=== PATIENT | female | born 1965 | race African-American/Black ===

== ENCOUNTER 2016-12-07 18:35 | Emergency (ER) | payer MEDICAID ==
[2016-12-07] MEDS ORDERED: ONDANSETRON HCL INJ/PF 4 MG/2 ML SDV IV ONE (18:50)
--- NOTE | 2016-12-07 18:50 | ER Document Report ---
ED Medical Screen (RME) - General Chief Complaint: High Blood Sugar Stated Complaint: HIGH BLOOD SUGAR TRAVEL OUTSIDE OF THE [place] IN LAST 30 DAYS: No - HPI Notes: 12/07/16 18:49 Patient complains of high blood sugar nausea patient states he drank alcohol the day "a little bit - Related Data Allergies/Adverse Reactions: No Known Allergies Allergy (Verified 12/07/16 18:42) Past Medical History - Social History Family history: Reviewed & Not Pertinent - Past Medical History Cardiac Medical History: Reports: Hx Hypercholesterolemia, Hx Hypertension Denies: Hx Coronary Artery Disease, Hx Heart Attack Pulmonary Medical History: Reports: Hx Tuberculosis - carrier Denies: Hx Asthma, Hx Bronchitis, Hx COPD, Hx Pneumonia Neurological Medical History: Reports: Hx Cerebrovascular Accident - 2012- OCCASIONAL EXPRESSIVE APHASIA. Denies: Hx Seizures Endocrine Medical History: Reports: Hx Diabetes Mellitus Type 2 Renal/ Medical History: Denies: Hx Peritoneal Dialysis GI Medical History: Reports: Hx Gastroesophageal Reflux Disease Musculoskeltal Medical History: Reports Hx Arthritis, Reports Hx Musculoskeletal Trauma Skin Medical History: Reports Hx Cellulitis Psychiatric Medical History: Reports: Hx Bipolar Disorder, Hx Depression Past Surgical History: Reports: Hx Section - X3. Denies: Hx Pacemaker - Immunizations Immunizations up to date: Yes Hx Diphtheria, Pertussis, Tetanus Vaccination: Yes Review of Systems - Review of Systems Constitutional: Other - Nausea elevated blood sugar Physical Exam - Vital signs Vitals: Temp Pulse Resp BP Pulse Ox 98.5 F 85 20 152/115 H 99 12/07/16 18:42 12/07/16 18:42 12/07/16 18:42 12/07/16 18:42 12/07/16 18:42 - Respiratory Respiratory status: No respiratory distress Chest status: Nontender Breath sounds: Normal Chest palpation: Normal Course - Vital Signs Vital signs: Temp Pulse Resp BP Pulse Ox 98.5 F 85 20 152/115 H 99 12/07/16 18:42 12/07/16 18:42 12/07/16 18:42 12/07/16 18:42 12/07/16 18:42
[2016-12-07] MEDS ORDERED: NORMAL SALINE 1000 ML 1,000 ML IV ONE (19:26)
[2016-12-07 19:39] LABS: ABSOLUTE EOSINOPHILS # (AUTO) 0.1 10^3/uL (0.0-0.6); ABSOLUTE LYMPHOCYTES (AUTO) 1.6 10^3/uL (0.5-4.7); ABSOLUTE MONOCYTES (AUTO) 0.4 10^3/uL (0.1-1.4); ABSOLUTE NEUT (AUTO) 2.8 10^3/uL (1.7-8.2); BASOPHILS % (AUTO) 0.7 % (0-2); EOSINOPHILS % (AUTO) 2.3 % (0-6); HEMATOCRIT 41.2 % (36.0-47.0); HEMOGLOBIN 13.1 g/dL (12.0-15.5); HGB HCT DIFFERENCE -1.9; LYMPHOCYTES % (AUTO) 31.8 % (13-45); MEAN CORPUSCULAR HEMOGLOBIN 26.1 pg (27.0-33.4); MEAN CORPUSCULAR HGB CONC 31.8 g/dL (32.0-36.0); MEAN CORPUSCULAR VOLUME 82 fl (80-97); MONOCYTES % (AUTO) 8.7 % (3-13); RED BLOOD COUNT 5.02 10^6/uL (3.72-5.28); RED CELL DISTRIBUTION WIDTH 14.1 % (11.5-14.0); SEGMENTED NEUTROPHILS % (AUTO) 56.5 % (42-78)
[2016-12-07 20:02] LABS: ALANINE AMINOTRANSFERASE 24 U/L (9-52); ALCOHOL 158 mg/dL (NONE DETECTED); ALKALINE PHOSPHATASE 80 U/L (38-126); ANION GAP 19 (5-19); ASPARTATE AMINO TRANSFERASE 23 U/L (14-36); BILIRUBIN,DIRECT 0.3 mg/dL (0.0-0.4); BILIRUBIN,TOTAL 0.6 mg/dL (0.2-1.3); BLOOD UREA NITROGEN 13 mg/dL (7-20); CALCIUM 9.6 mg/dL (8.4-10.2); CARBON DIOXIDE 18 mmol/L (22-30); CHLORIDE 99 mmol/L (98-107); CREATININE RESULT 0.71 mg/dL (0.52-1.25); GLUCOSE 311 mg/dL (75-110); LIPASE 67.4 U/L (23-300); POTASSIUM 3.9 mmol/L (3.6-5.0); SODIUM 136.4 mmol/L (137-145); TOTAL PROTEIN 7.7 g/dL (6.3-8.2)
[2016-12-07] MEDS ORDERED: IBUPROFEN 600 MG TABLET PO ONE (20:07)
[2016-12-07] MEDS ORDERED: INSULIN LISPRO 100 UNIT/ML 3 ML VIAL SUBCUT ONE (20:12)
[2016-12-07] MEDS ORDERED: INSULIN GLARGINE,HUM.REC.ANLOG 1,000 UNIT/10 ML UNIT SUBCUT ONE (20:13)
--- NOTE | 2016-12-07 20:18 | ER Document Report ---
ED Blood Sugar Problem - General Chief Complaint: High Blood Sugar Stated Complaint: HIGH BLOOD SUGAR Time Seen by Provider: 12/07/16 18:50 Notes: The patient is a 50-year-old female, past medical history IDDM, chronic drinker , presents with mild epigastric pain, nausea and elevated blood sugars at home after she drank today. She took her morning Humalog, but did not take her lunchtime or evening Humalog dose. Denies vomiting, fevers, diarrhea, constipation, hematemesis or urinary symptoms. TRAVEL OUTSIDE OF THE [place] IN LAST 30 DAYS: No - Related Data Allergies/Adverse Reactions: No Known Allergies Allergy (Verified 12/07/16 18:42) Past Medical History - General Information source: Patient - Social History Smoking Status: Unknown if Ever Smoked Frequency of alcohol use: Heavy Family History: DM - Mother, Hypertension - Mother, Other - Pancreatitismother Patient has suicidal ideation: No Patient has homicidal ideation: No - Past Medical History Cardiac Medical History: Reports: Hx Hypercholesterolemia, Hx Hypertension Denies: Hx Coronary Artery Disease, Hx Heart Attack Pulmonary Medical History: Reports: Hx Tuberculosis - carrier Denies: Hx Asthma, Hx Bronchitis, Hx COPD, Hx Pneumonia Neurological Medical History: Reports: Hx Cerebrovascular Accident - 2012- OCCASIONAL EXPRESSIVE APHASIA. Denies: Hx Seizures Endocrine Medical History: Reports: Hx Diabetes Mellitus Type 2 Renal/ Medical History: Denies: Hx Peritoneal Dialysis GI Medical History: Reports: Hx Gastroesophageal Reflux Disease Musculoskeltal Medical History: Reports Hx Arthritis, Reports Hx Musculoskeletal Trauma Skin Medical History: Reports Hx Cellulitis Psychiatric Medical History: Reports: Hx Bipolar Disorder, Hx Depression Past Surgical History: Reports: Hx Section - X3. Denies: Hx Pacemaker - Immunizations Immunizations up to date: Yes Hx Diphtheria, Pertussis, Tetanus Vaccination: Yes Hx Pneumococcal Vaccination: 03/11/16 Review of Systems - Review of Systems Notes: REVIEW OF SYSTEMS: CONSTITUTIONAL: -fevers, -chills EENT: -eye pain, -difficulty swallowing, -nasal congestion CARDIOVASCULAR:-chest pain, -syncope. RESPIRATORY: -cough, -SOB GASTROINTESTINAL: +epigastric abdominal pain, +nausea, -vomiting, -diarrhea GENITOURINARY: -dysuria, -hematuria MUSCULOSKELETAL: -back pain, -neck pain SKIN: -rash or skin lesions. HEMATOLOGIC: -easy bruising or bleeding. LYMPHATIC: -swollen, enlarged glands. NEUROLOGICAL: -altered mental status or loss of consciousness, -headache, - neurologic symptoms PSYCHIATRIC: -anxiety, -depression. ALL OTHER SYSTEMS REVIEWED AND NEGATIVE. Physical Exam - Vital signs Vitals: Temp Pulse Resp BP Pulse Ox 98.5 F 85 20 152/115 H 99 12/07/16 18:42 12/07/16 18:42 12/07/16 18:42 12/07/16 18:42 12/07/16 18:42 - Notes Notes: PHYSICAL EXAMINATION: GENERAL: Well-appearing, well-nourished and in no acute distress. HEAD: Atraumatic, normocephalic. EYES: Pupils equal round and reactive to light, extraocular movements intact, sclera anicteric, conjunctiva are normal. ENT: nares patent, oropharynx clear without exudates. Moist mucous membranes. NECK: Normal range of motion, supple without lymphadenopathy LUNGS: Breath sounds clear to auscultation bilaterally and equal. No wheezes rales or rhonchi. HEART: Regular rate and rhythm without murmurs ABDOMEN: Soft, mild epigastric tenderness, normoactive bowel sounds. No guarding, no rebound. No masses appreciated. EXTREMITIES: Normal range of motion, no pitting or edema. No cyanosis. NEUROLOGICAL: Cranial nerves grossly intact. Normal speech, normal gait. Normal sensory and motor exams. PSYCH: Normal mood, normal affect. SKIN: Warm, Dry, normal turgor, no rashes or lesions noted. Course - Re-evaluation Re-evalutation: Patient appears well. Her hyperglycemia improved after her home dose of insulin. Instructed her to not drink as much alcohol as she normally does and to go to [facility] for ETOH rehab. Pt discharged home with son. She is ambulating with a steady gait. - Vital Signs Vital signs: Temp Pulse Resp BP Pulse Ox 98.1 F 76 18 168/84 H 100 12/07/16 22:20 12/07/16 22:20 12/07/16 22:20 12/07/16 22:20 12/07/16 22:20 - Laboratory Result Diagrams: 12/07/16 19:10 12/07/16 19:10 Laboratory results interpreted by me: 12/07/16 12/07/16 12/07/16 19:10 19:10 21:14 MCH 26.1 L MCHC 31.8 L RDW 14.1 H Sodium 136.4 L Carbon Dioxide 18 L Glucose 311 H POC Glucose 276 H 12/07/16 22:17 [facility] RDW Sodium Carbon Dioxide Glucose POC Glucose 246 H Discharge - Discharge Clinical Impression: Hyperglycemia Alcohol intoxication Qualifiers: Complication of substance-induced condition: uncomplicated Qualified Code(s): F10.920 - Alcohol use, unspecified with intoxication, uncomplicated Condition: Stable Disposition: HOME, SELF-CARE Additional Instructions: HYPERGLYCEMIA (HIGH BLOOD SUGAR): You have an abnormally high blood sugar. Not all high blood sugar requires long-term treatment. High blood sugar can be due to medications, , or the stress of illness. (These cases are "borderline diabetes.") If the doctor feels your high blood sugar might resolve with time, you may not require treatment now. It's very important that you follow through, to see if the blood sugar returns to normal levels. Uncontrolled high blood sugar leads to early heart disease, strokes, nerve damage, eye damage, and kidney damage. Call the physician if there is faintness, excess sleepiness, or very rapid breathing. DIABETES: You have an abnormally high blood sugar, suspicious for diabetes. Not all high blood sugar requires long-term treatment. High blood sugar can be due to medications, , or the stress of illness. (These cases are "borderline diabetes.") If the doctor feels your high blood sugar might get better with time, you may not require treatment now. It's very important that you follow through. Uncontrolled high blood sugar leads to early heart disease, strokes, nerve damage, eye damage, and kidney damage. All diabetics should follow a diet designed to control the blood sugar. Overweight diabetics should exercise regularly and lose weight. If this is not sufficient to control the blood sugar, pills or insulin shots are necessary. Younger people who develop diabetes almost always require insulin daily. Home testing of blood sugars or urine sugar is required. Diabetic teaching is available to help you figure insulin doses and monitor the blood sugar. Call the physician if there is faintness, excess sleepiness, or very rapid breathing. If hypoglycemia (LOW blood sugar) develops, symptoms are shakiness, weakness, sweating, and confusion. In this case, you should eat or drink something with sugar at once. INSULIN: Insulin is a natural hormone that lowers blood sugar. Normal blood sugar prevents complications of diabetes. For most diabetics, insulin is the best way to treat the illness. Be sure you know how to measure the insulin correctly. Insulin is measured in "units." There are three types of insulin: N (NPH or long acting), R (regular or short acting), and L (Lente or very long acting). Be sure you are using the right amount of each type. Insulin must be injected into the fat. You can use the abdomen, upper arms , and thighs. Select a different injection site every time. Wipe the site with alcohol before injecting. When first starting insulin, some adjusting of the insulin dose is necessary. Keep a record of each insulin dose and time of injection, and of the blood sugar and the time you test it. Sometimes insulin can make the blood sugar too low. If you become dizzy, sweaty, shaky, or confused, you may be having a hypoglycemic episode. Immediately use juice or some other sweet food. Call the doctor if the symptoms don't go away. FOLLOW-UP CARE: If you have been referred to a physician for follow-up care, call the physician s office for an appointment as you were instructed or within the next two days. If you experience worsening or a significant change in your symptoms, notify the physician immediately or return to the Emergency Department at any time for re-evaluation. ACUTE ALCOHOL INTOXICATION and ALCOHOL ABUSE: Your evaluation revealed very high levels of alcohol. You can from drinking a large amount of alcohol rapidly! Further, there's the risk of falls , traffic accidents, and fights. A high portion (about 50 percent) of the serious injuries seen in hospital emergency rooms are caused by alcohol. Alcohol overdosage is usually due to an underlying emotional or psychiatric problem. You may benefit from counselling. If "binge" drinking is an ongoing problem for you, or if you drink ANY AMOUNT of alcohol EVERY day, you most likely have a tendency to alcoholism. You should avoid alcohol totally. We can refer you for treatment. Persons with alcohol problems are often also prone to other addictions -- you should discuss any use of medications or drugs with the doctor. You should be watched at home for the next several hours by someone who has not been drinking. Get extra fluids for the next 24 hours. Call the doctor if there is repeated vomiting, increasing headache, decreasing level of alertness, or any other worsening. CHRONIC ALCOHOLISM and ALCOHOL ABUSE: Your evaluation reveals evidence of chronic alcoholism, an addiction to alcohol. The tendency to alcoholism may be inherited. Chronic use of alcohol weakens muscles, causes fatty deposits in the liver , damages the stomach, makes you more prone to infections, and can cause defects in unborn children. In the long run, brain atrophy and cirrhosis of the liver result. You are also at greater risk for certain types of cancer, such as cancer of the mouth, throat, stomach, and liver. Counselling services are available to help you. In-hospital treatment programs often help. Support groups such as Alcoholics Anonymous can be very useful in beating this addiction. Your physician can make a referral for you. As alcoholics often are prone to other addictions, you should discuss your use of any other medications with the doctor. FOR THE OBSERVER: Observe the patient for the next 24 hours and call or go to the hospital if any of the following are noted: prolonged or repeated vomiting, difficulty in arousing, convulsions (seizures or fits), fever, persistent cough, breathing that is too slow or too rapid, or confused or bizarre behavior. If a counselling visit has been arranged, make sure the patient attends. Call the physician or poison control if you have questions. FOLLOW-UP CARE: If you have been referred to a physician for follow-up care, call the physician s office for an appointment as you were instructed or within the next two days. If you experience worsening or a significant change in your symptoms, notify the physician immediately or return to the Emergency Department at any time for re-evaluation. Forms: Elevated Blood Pressure Referrals: [facility] [Outside] - Follow up as needed
[2016-12-07 22:27] VITALS: BP 168/84
== END 2016-12-07 22:20 | disposition home or self-care (01) ==
LOC: ER 18:35
DX: E11.65 Type 2 diabetes mellitus with hyperglycemia (principal); T38.3X6A Underdosing of insulin and oral hypoglycemic [antidiabetic] drugs, initial encounter; Z91.14 Patient's other noncompliance with medication regimen; Z79.4 Long term (current) use of insulin; F10.10 Alcohol abuse, uncomplicated; R10.13 Epigastric pain; R11.0 Nausea; I10 Essential (primary) hypertension
CPT/HCPCS: 99285; 96361; 96374; 36415; 82962; 80307; 83690; 85025; 80053; J1815 ×2; J3490; J2405; J7030

== ENCOUNTER 2017-02-05 08:52 | Emergency (ER) | payer MEDICAID ==
--- NOTE | 2017-02-05 09:05 | ER Document Report ---
ED General - General Information source: Patient TRAVEL OUTSIDE OF THE [place] IN LAST 30 DAYS: No - HPI Onset: Just prior to arrival Associated symptoms: Other - see above <TRACY SON - Last Filed: 02/05/17 09:00> <MATTEO PEREZ - Last Filed: 02/05/17 12:43> - General Stated Complaint: DIZZINESS Notes: Patient is a 51 year old female who presents to the ED with complaints of a fall this morning just [employer]. Patient states she was putting out a cigarette and fell onto the ground landing on her left side injuring her left shoulder and left knee. Patient has had an increase in falls the past 3 days, she states she does not know why but she has been a little off balance. She has not noticed any exacerbating factors causing her to be off balance. Patient is a diabetic and states she checks her blood sugars at home but she has not yet checked them today. PCP: Annalisa Soares (TRACY SON) - Related Data Allergies/Adverse Reactions: No Known Allergies Allergy (Verified 12/07/16 18:42) Past Medical History - General Information source: Patient - Social History Smoking Status: Current Every Day Smoker Frequency of alcohol use: Heavy Family History: DM - Mother, Hypertension - Mother, Other - Pancreatitismother - Past Medical History Cardiac Medical History: Reports: Hx Hypercholesterolemia, Hx Hypertension, Other - hyperlipidemia Pulmonary Medical History: Reports: Hx Tuberculosis Neurological Medical History: Reports: Hx Cerebrovascular Accident - 2012- OCCASIONAL EXPRESSIVE APHASIA Endocrine Medical History: Reports: Hx Diabetes Mellitus Type 2 GI Medical History: Reports: Hx Gastroesophageal Reflux Disease Musculoskeltal Medical History: Reports Hx Arthritis, Reports Hx Musculoskeletal Trauma Skin Medical History: Reports Hx Cellulitis Psychiatric Medical History: Reports: Hx Bipolar Disorder, Hx Depression Past Surgical History: Reports: Hx Section - X3. Denies: Hx Pacemaker - Immunizations Immunizations up to date: Yes Hx Diphtheria, Pertussis, Tetanus Vaccination: Yes Hx Pneumococcal Vaccination: 03/11/16 <TRACY SON - Last Filed: 02/05/17 09:00> Review of Systems - Review of Systems Constitutional: No symptoms reported EENT: No symptoms reported Cardiovascular: See HPI, Dizziness - "off balance" Respiratory: No symptoms reported Gastrointestinal: No symptoms reported Genitourinary: No symptoms reported Female Genitourinary: No symptoms reported Musculoskeletal: See HPI, Joint pain - left shoulder and left knee Skin: No symptoms reported Hematologic/Lymphatic: No symptoms reported Neurological/Psychological: No symptoms reported <HUYTRACY - Last Filed: 02/05/17 09:00> Physical Exam - General General appearance: Other - very poor eye contact, very thin, depressed - HEENT Head: Normocephalic, Atraumatic Eyes: Other - very poor eye contact,exophthalmic, right lateral gaze nystagmus Pupils: PERRL Neck: Normal. No: Carotid bruit - Respiratory Respiratory status: Cyanosis Breath sounds: Normal - Cardiovascular Rhythm: Regular Heart sounds: Normal auscultation Murmur: No - Abdominal Inspection: Other - very thin - Back Back: Normal - Extremities General upper extremity: Normal inspection, Normal ROM, Other - Left Shoulder: not tender to palpate, good active and passive ROM without pain General lower extremity: Normal inspection, Normal ROM, Other - left knee: there is no swelling, no tenderness to plapation, mobile patella which is the same on the right - Neurological Neuro grossly intact: Yes - Psychological Associated symptoms: Depressed, Other - very poor eye contact - Skin Skin Temperature: Warm Skin Moisture: Dry Skin Color: Normal Location of irregularity: Other - petechiae on anterior chest <HUYTRACY - Last Filed: 02/05/17 09:00> - Vital signs Vitals: Temp Pulse BP Pulse Ox 98.8 F 86 168/98 H 100 02/05/17 08:55 02/05/17 08:55 02/05/17 08:55 02/05/17 08:55 Course <HUYTRACY - Last Filed: 02/05/17 09:00> - Laboratory Result Diagrams: 02/05/17 10:35 02/05/17 10:35 - Diagnostic Test Radiology reviewed: Image reviewed, Reports reviewed - CT scan of the brain shows chronic ischemic changes without acute changes. - EKG Interpretation by Me EKG shows normal: Sinus rhythm, [place], Intervals, QRS Complexes. abnormal: ST-T Waves - Nonspecific lateral T abnormalities Rate: Normal - 82 Rhythm: NSR P Waves: LAE When compared to previous EKG there are: Changes noted - New T-wave inversion in the lateral leads <MATTEO PEREZ - Last Filed: 02/05/17 12:43> - Re-evaluation Re-evalutation: 02/05/17 11:10 The patient's right lateral gaze nystagmus is a little improved at this time. I had her sit up to look around and she felt that the dizziness was better than previously but is still some present. We will give an additional dose of Antivert and recheck in about an hour. 02/05/17 12:41 Patient has been eating a meal that was brought her by her family. She is feeling much better. She states the dizziness is gone now. (MATTEO PEREZ) - Vital Signs Vital signs: Temp Pulse Resp BP Pulse Ox 98.8 F 86 168/98 H 100 02/05/17 08:55 02/05/17 08:55 02/05/17 08:55 02/05/17 08:55 - Laboratory Laboratory results interpreted by me: 02/05/17 02/05/17 02/05/17 10:35 10:35 10:58 WBC 2.5 L MCH 26.8 L Absolute Neutrophils 1.3 L Sodium 136.9 L Glucose 123 H Creatine Kinase 208 H Urine Protein 100 H Urine Glucose (UA) 50 H Urine Ketones 20 H Discharge <TRACY SON - Last Filed: 02/05/17 09:00> <MATTEO PEREZ - Last Filed: 02/05/17 12:43> - Discharge Clinical Impression: Vertigo Fall Qualifiers: Encounter type: initial encounter Qualified Code(s): W19.XXXA - Unspecified fall, initial encounter Condition: Stable Disposition: HOME, SELF-CARE Additional Instructions: Vertigo: You have experienced an episode of vertigo -- a whirling dizziness which may be accompanied by nausea and vomiting or staggering. Vertigo is often caused by an irritation of the inner ear, in which case it is called labyrinthitis. It can also be a symptom of a degenerating inner ear, nerve damage, or brain injury. Your physician has evaluated you to determine whether any further testing is necessary. Vertigo is often treated with dramamine or meclizine. These medications are helpful, but stronger medication may be needed if you are vomiting. Rest in bed. You should not drive or operate machinery until completely better. It may take one to three weeks for recovery. If there are new symptoms, such as decreased hearing or vision, severe headache, weakness or faintness, or confusion, call the physician. TAKE THE MEDICATION PRESCRIBED. TAKE FALL PRECAUTIONS. FOLLOW UP WITH YOUR DOCTOR IF NOT IMPROVING. RETURN TO THE EMERGENCY ROOM IF ANY NEW OR WORSENING SYMPTOMS. Prescriptions: Meclizine HCl [Antivert 25 mg Tablet] 25 mg PO TID PRN #20 tablet PRN Reason: Referrals: ANNALISA SOARES PA-C [Primary Care Provider] - Follow up as needed Scribe Attestation: 02/05/17 10:29 I personally performed the services described in the documentation, reviewed and edited the documentation which was dictated to the scribe in my presence, and it accurately records my words and actions. (MATTEO PEREZ) Scribe Documentation - Scribe Written by Sandoval:: sandoval Madsen, 02/05/2017, 911 acting as scribe for :: Anusha <TRACY SON - Last Filed: 02/05/17 09:00>
[2017-02-05] MEDS ORDERED: MECLIZINE HCL 25 MG TABLET PO ONE ×2 (09:09→11:10)
--- NOTE | 2017-02-05 09:42 | RADIOLOGY REPORT (SQ) ---
EXAM DESCRIPTION: CT HEAD WITHOUT COMPLETED DATE/TIME: 02/05/2017 9:30 am REASON FOR STUDY: FREQUENT FALLS COMPARISON: 03/01/2016 TECHNIQUE: Axial images acquired through the brain without intravenous contrast. Images reviewed wi th bone, brain and subdural windows. Images stored on PACS. All CT scanners at this facility use dose modulation, iterative reconstruction, and/or weight based d osing when appropriate to reduce radiation dose to as low as reasonably achievable (ALARA). [facility]: Dose Right [facility]: CareDose [facility]: Dose Right [facility]: Teradose 4D [facility]: Smart Amitive RADIATION DOSE: Up-to-date CT equipment and radiation dose reduction techniques were employed. CTDIv ol: 64.6 mGy. DLP: 1163 mGy-cm.mGy. LIMITATIONS: None. FINDINGS: VENTRICLES: Prominent. CEREBRUM: No masses. No hemorrhage. No midline shift. Old right parietal infarct. Areas of low de nsity in the white matter most likely due to chronic micro-vascular ischemic change. No evidence for acute infarction. CEREBELLUM: No masses. No hemorrhage. No alteration of density. No evidence for acute infarction. EXTRAAXIAL SPACES: Age-related involutional change. No fluid collections. No masses. ORBITS AND GLOBE: No intra- or extraconal masses. Normal contour of globe without masses. CALVARIUM: No fracture. PARANASAL SINUSES: No fluid or mucosal thickening. SOFT TISSUES: No mass or hematoma. OTHER: No other significant finding. IMPRESSION: Chronic ischemic changes. TECHNICAL DOCUMENTATION: JOB ID: [id number] Quality ID # [id number]: Final reports with documentation of one or more dose reduction techniques (e.g., Au tomated exposure control, adjustment of the mA and/or kV according to patient size, use of iterative reconstruction technique) 2010 [employer]- All Rights Reserved
[2017-02-05 10:42] LABS: ABSOLUTE EOSINOPHILS # (AUTO) 0.1 10^3/uL (0.0-0.6); ABSOLUTE LYMPHOCYTES (AUTO) 0.9 10^3/uL (0.5-4.7); ABSOLUTE MONOCYTES (AUTO) 0.2 10^3/uL (0.1-1.4); ABSOLUTE NEUT (AUTO) 1.3 10^3/uL (1.7-8.2); BASOPHILS % (AUTO) 0.8 % (0-2); EOSINOPHILS % (AUTO) 2.9 % (0-6); HEMATOCRIT 37.8 % (36.0-47.0); HEMOGLOBIN 12.6 g/dL (12.0-15.5); LYMPHOCYTES % (AUTO) 35.5 % (13-45); MEAN CORPUSCULAR HEMOGLOBIN 26.8 pg (27.0-33.4); MEAN CORPUSCULAR HGB CONC 33.2 g/dL (32.0-36.0); MEAN CORPUSCULAR VOLUME 81 fl (80-97); MONOCYTES % (AUTO) 9.2 % (3-13); RED BLOOD COUNT 4.69 10^6/uL (3.72-5.28); RED CELL DISTRIBUTION WIDTH 13.5 % (11.5-14.0); SEGMENTED NEUTROPHILS % (AUTO) 51.6 % (42-78); WHITE BLOOD COUNT 2.5 10^3/uL (4.0-10.5)
[2017-02-05 10:53] LABS: PROTHROMBIN TIME 13.8 SEC (11.4-15.4)
[2017-02-05 10:58] LABS: ALANINE AMINOTRANSFERASE 28 U/L (9-52); ALBUMIN 4.2 g/dL (3.5-5.0); ALKALINE PHOSPHATASE 73 U/L (38-126); ANION GAP 15 (5-19); ASPARTATE AMINO TRANSFERASE 26 U/L (14-36); BILIRUBIN,DIRECT 0.4 mg/dL (0.0-0.4); BILIRUBIN,TOTAL 0.7 mg/dL (0.2-1.3); BLOOD UREA NITROGEN 17 mg/dL (7-20); CALCIUM 10.1 mg/dL (8.4-10.2); CARBON DIOXIDE 23 mmol/L (22-30); CHLORIDE 99 mmol/L (98-107); CREATINE KINASE 208 U/L (30-135); GLUCOSE 123 mg/dL (75-110); LIPASE 37.1 U/L (23-300); POTASSIUM 4.1 mmol/L (3.6-5.0); SODIUM 136.9 mmol/L (137-145); TOTAL PROTEIN 7.7 g/dL (6.3-8.2)
[2017-02-05 11:01] LABS: ALCOHOL < 10 mg/dL (NONE DETECTED)
[2017-02-05 11:09] LABS: CREATINE KINASE MB 1.17 ng/mL (<4.55)
[2017-02-05 11:11] LABS: TROPONIN I 0.092 ng/mL
[2017-02-05 11:16] LABS: APPEARANCE,URINE CLEAR; BILIRUBIN,URINE NEGATIVE (NEGATIVE); GLUCOSE, URINE 50 mg/dL (NEGATIVE); KETONES,URINE 20 mg/dL (NEGATIVE); LEUKOCYTE ESTERASE,URINE NEGATIVE (NEGATIVE); NITRITE,URINE NEGATIVE (NEGATIVE); PROTEIN,URINE 100 mg/dL (NEGATIVE); UROBILINOGEN,URINE NEGATIVE mg/dL (<2.0)
--- NOTE | 2017-02-05 12:04 | EKG REPORT ---
SEVERITY:- ABNORMAL ECG - SINUS RHYTHM PROBABLE LEFT ATRIAL ABNORMALITY ABNORMAL T, CONSIDER ISCHEMIA, LATERAL LEADS LVH : Confirmed by: Yevgeniy Jose 05-Feb-2017 12:04:14
[2017-02-05 13:03] VITALS: BP 166/87
== END 2017-02-05 12:55 | disposition home or self-care (01) ==
LOC: ER 08:52
DX: R42 Dizziness and giddiness (principal); S49.92XA Unspecified injury of left shoulder and upper arm, initial encounter; S89.92XA Unspecified injury of left lower leg, initial encounter; W19.XXXA Unspecified fall, initial encounter; Y93.89 Activity, other specified; H55.00 Unspecified nystagmus; R23.3 Spontaneous ecchymoses; F32.9 Major depressive disorder, single episode, unspecified; E11.9 Type 2 diabetes mellitus without complications; I10 Essential (primary) hypertension; Z86.73 Personal history of transient ischemic attack (TIA), and cerebral infarction without residual deficits; R94.31 Abnormal electrocardiogram [ECG] [EKG]
CPT/HCPCS: 36415; 70450; 80053; 80307; 81001; 82550; 82553; 83690; 84484; 85025; 85610; 93005; 93010; 99284

== ENCOUNTER 2017-03-13 12:15 | Emergency (ER) | payer MEDICAID ==
[2017-03-13] MEDS ORDERED: NORMAL SALINE 1000 ML 1,000 ML IV ONE (12:31)
[2017-03-13] MEDS ORDERED: NALOXONE HCL INJ/PF 0.4 MG/1 ML SDV IV ONE (12:31)
[2017-03-13 12:47] LABS: ABSOLUTE EOSINOPHILS # (AUTO) 0.1 10^3/uL (0.0-0.6); ABSOLUTE LYMPHOCYTES (AUTO) 0.9 10^3/uL (0.5-4.7); ABSOLUTE MONOCYTES (AUTO) 0.3 10^3/uL (0.1-1.4); ABSOLUTE NEUT (AUTO) 4.2 10^3/uL (1.7-8.2); BASOPHILS % (AUTO) 0.6 % (0-2); EOSINOPHILS % (AUTO) 1.7 % (0-6); HEMATOCRIT 37.2 % (36.0-47.0); HEMOGLOBIN 12.9 g/dL (12.0-15.5); HGB HCT DIFFERENCE 1.5; LYMPHOCYTES % (AUTO) 16.1 % (13-45); MEAN CORPUSCULAR HEMOGLOBIN 27.8 pg (27.0-33.4); MEAN CORPUSCULAR HGB CONC 34.5 g/dL (32.0-36.0); MEAN CORPUSCULAR VOLUME 81 fl (80-97); MONOCYTES % (AUTO) 4.9 % (3-13); RED BLOOD COUNT 4.62 10^6/uL (3.72-5.28); SEGMENTED NEUTROPHILS % (AUTO) 76.7 % (42-78); WHITE BLOOD COUNT 5.5 10^3/uL (4.0-10.5)
[2017-03-13 14:00] LABS: APPEARANCE,URINE SLIGHTLY-CLOUDY; BILIRUBIN,URINE NEGATIVE (NEGATIVE); GLUCOSE, URINE 50 mg/dL (NEGATIVE); KETONES,URINE NEGATIVE (NEGATIVE); LEUKOCYTE ESTERASE,URINE NEGATIVE (NEGATIVE); NITRITE,URINE NEGATIVE (NEGATIVE); PROTEIN,URINE >=500 mg/dL (NEGATIVE); URINE SPECIFIC GRAVITY 1.008; UROBILINOGEN,URINE NEGATIVE mg/dL (<2.0)
[2017-03-13 14:01] LABS: ANION GAP 11 (5-19); BLOOD UREA NITROGEN 12 mg/dL (7-20); CALCIUM 9.4 mg/dL (8.4-10.2); CARBON DIOXIDE 18 mmol/L (22-30); CHLORIDE 104 mmol/L (98-107); GLUCOSE 96 mg/dL (75-110); LIPASE 39.1 U/L (23-300); POTASSIUM 4.2 mmol/L (3.6-5.0); SODIUM 132.8 mmol/L (137-145)
[2017-03-13 14:15] LABS: ALCOHOL < 10 mg/dL (NONE DETECTED)
[2017-03-13 14:15] LABS: URINE BARBITURATES SCREEN NEGATIVE; URINE METHADONE SCREEN NEGATIVE; URINE OPIATES LOW NEGATIVE; URINE PHENCYCLIDINE SCREEN NEGATIVE
--- NOTE | 2017-03-13 15:03 | ER Document Report ---
ED General - General Chief Complaint: Low Blood Sugar Stated Complaint: LOW BLOOD SUGAR ISSUES Time Seen by Provider: 03/13/17 12:32 TRAVEL OUTSIDE OF THE [place] IN LAST 30 DAYS: No - HPI Patient complains to provider of: Low blood sugar Notes: Patient coming in after being found by EMS to have a low blood sugar. Family member states patient was not acting normal self minus arrival found blood sugar of 27 patient was given D50 peanut butter sandwich and transported to the ER for further evaluation. EMS states patient took her insulin however did not eat anything this morning. Upon my evaluation patient does seem to be sleepy Accu-Chek does show sugar of 168. Patient denies fevers chills nausea vomiting diarrhea. Patient denies any smoking or drug abuse. Upon answering questions patient easily falls back asleep. - Related Data Allergies/Adverse Reactions: No Known Allergies Allergy (Verified 12/07/16 18:42) Past Medical History - Social History Smoking Status: Smoker,Current Status Unk Chew tobacco use (# tins/day): No Frequency of alcohol use: None Drug Abuse: None Family History: DM - Mother, Hypertension - Mother, Other - Pancreatitismother - Past Medical History Cardiac Medical History: Reports: Hx Hypercholesterolemia, Hx Hypertension Denies: Hx Heart Attack Pulmonary Medical History: Reports: Hx Tuberculosis Denies: Hx Asthma, Hx Bronchitis, Hx COPD, Hx Pneumonia Neurological Medical History: Reports: Hx Cerebrovascular Accident - 2012- OCCASIONAL EXPRESSIVE APHASIA. Denies: Hx Seizures Endocrine Medical History: Reports: Hx Diabetes Mellitus Type 2 GI Medical History: Reports: Hx Gastroesophageal Reflux Disease Musculoskeltal Medical History: Reports Hx Arthritis, Reports Hx Musculoskeletal Trauma Skin Medical History: Reports Hx Cellulitis Psychiatric Medical History: Reports: Hx Bipolar Disorder, Hx Depression Past Surgical History: Reports: Hx Section - X3. Denies: Hx Pacemaker - Immunizations Immunizations up to date: Yes Hx Diphtheria, Pertussis, Tetanus Vaccination: Yes Hx Pneumococcal Vaccination: 03/11/16 Review of Systems - Review of Systems Constitutional: Other - Low blood sugar EENT: No symptoms reported Cardiovascular: No symptoms reported Respiratory: No symptoms reported Gastrointestinal: No symptoms reported Genitourinary: No symptoms reported Female Genitourinary: No symptoms reported Musculoskeletal: No symptoms reported Skin: No symptoms reported Hematologic/Lymphatic: No symptoms reported Neurological/Psychological: No symptoms reported Physical Exam - Vital signs Vitals: Resp 16 03/13/17 12:18 Interpretation: Normal - General General appearance: Appears well, Alert - HEENT Head: Normocephalic, Atraumatic Eyes: Normal Pupils: PERRL - Respiratory Respiratory status: No respiratory distress Chest status: Nontender Breath sounds: Normal Chest palpation: Normal - Cardiovascular Rhythm: Regular Heart sounds: Normal auscultation Murmur: No - Abdominal Inspection: Normal Distension: No distension Bowel sounds: Normal Tenderness: Nontender Organomegaly: No organomegaly - Back Back: Normal, Nontender - Extremities General upper extremity: Normal inspection, Nontender, Normal color, Normal ROM , Normal temperature General lower extremity: Normal inspection, Nontender, Normal color, Normal ROM , Normal temperature, Normal weight bearing. No: Sujata's sign - Neurological Neuro grossly intact: Yes Cognition: Normal Orientation: AAOx4 [place] Coma Scale Eye Opening: Spontaneous [place] Coma Scale Verbal: Oriented [place] Coma Scale Motor: Obeys Commands [place] Coma Scale Total: 15 Speech: Normal Motor strength normal: LUE, RUE, LLE, RLE Sensory: Normal - Psychological Associated symptoms: Normal affect, Normal mood - Skin Skin Temperature: Warm Skin Moisture: Dry Skin Color: Normal Course - Re-evaluation Re-evalutation: 03/13/17 15:02 Laboratory values returned showing no acute pathology. Patient feeling better after IV fluids and monitoring patient was able tolerate a meal will discharge patient home follow-up with her primary care physician. - Vital Signs Vital signs: Temp Pulse Resp BP Pulse Ox 94.8 F L 81 18 144/84 H 99 03/13/17 12:22 03/13/17 12:22 03/13/17 12:22 03/13/17 12:22 03/13/17 12:22 - Laboratory Result Diagrams: 03/13/17 12:30 03/13/17 13:13 Laboratory results interpreted by me: 03/13/17 03/13/17 03/13/17 12:20 12:30 13:13 RDW 15.0 H Sodium 132.8 L Carbon Dioxide 18 L POC Glucose 169 H Urine Protein Urine Glucose (UA) Urine Blood 03/13/17 13:27 RDW Sodium Carbon Dioxide POC Glucose Urine Protein >=500 H Urine Glucose (UA) 50 H Urine Blood SMALL H Critical Care Note - Critical Care Note Total time excluding time spent on procedures (mins): 35 Comments: Multiple evaluations for hypoglycemia Discharge - Discharge Clinical Impression: Hypoglycemia Condition: Good Disposition: HOME, SELF-CARE Instructions: Hypoglycemia Diet ([facility]), Hypoglycemia ([facility]) Additional Instructions: Follow-up with your primary care physician. Continue your medications normal schedule tomorrow.
[2017-03-13 15:17] VITALS: BP 152/94
== END 2017-03-13 15:19 | disposition home or self-care (01) ==
LOC: ER 12:15
DX: E11.649 Type 2 diabetes mellitus with hypoglycemia without coma (principal); Z79.4 Long term (current) use of insulin; I10 Essential (primary) hypertension
CPT/HCPCS: 99291; 96361; 51701; 96374; 36415; 82962; 80307 ×2; 83690; 85025; 80048; 81001; J2310; J7030

== ENCOUNTER 2017-03-15 23:35 | Emergency (ER) | payer MEDICAID ==
[2017-03-15] MEDS ORDERED: FENTANYL CITRATE INJ/PF 100 MCG/2 ML AMPUL IV ONE (23:50)
[2017-03-15] MEDS ORDERED: PROPOFOL 100 ML IV PRN (23:50)
[2017-03-15] MEDS ORDERED: FUROSEMIDE INJ/PF 40 MG/4 ML SDV IV ONE (23:52)
--- NOTE | 2017-03-15 23:57 | ER Document Report ---
ED General - General Stated Complaint: DIFFICULTY BREATHING Time Seen by Provider: 03/15/17 23:42 Cannot obtain history due to: Intubated Notes: Patient is a 51-year-old female with a past medical history of chronic alcoholism, recurrent pancreatitis, hypertension who presents intubated by EMS after being found in respiratory distress initial oxygen saturations 20 percentile range. No additional history can be obtained secondary to patient's condition on presentation. TRAVEL OUTSIDE OF THE [place] IN LAST 30 DAYS: No - Related Data Allergies/Adverse Reactions: No Known Allergies Allergy (Verified 12/07/16 18:42) Past Medical History - General Information source: Emergency Med Personnel Cannot obtain history due to: Intubated, Unstable vital signs - Social History Smoking Status: Current Every Day Smoker Frequency of alcohol use: Heavy Lives with: Family Family History: DM - Mother, Hypertension - Mother, Other - Pancreatitismother - Past Medical History Cardiac Medical History: Reports: Hx Hypercholesterolemia, Hx Hypertension Denies: Hx Heart Attack Pulmonary Medical History: Reports: Hx Tuberculosis Denies: Hx Asthma, Hx Bronchitis, Hx COPD, Hx Pneumonia Neurological Medical History: Reports: Hx Cerebrovascular Accident - 2012- OCCASIONAL EXPRESSIVE APHASIA. Denies: Hx Seizures Endocrine Medical History: Reports: Hx Diabetes Mellitus Type 2 GI Medical History: Reports: Hx Gastroesophageal Reflux Disease Musculoskeltal Medical History: Reports Hx Arthritis, Reports Hx Musculoskeletal Trauma Skin Medical History: Reports Hx Cellulitis Psychiatric Medical History: Reports: Hx Bipolar Disorder, Hx Depression Past Surgical History: Reports: Hx Section - X3. Denies: Hx Pacemaker - Immunizations Immunizations up to date: Yes Hx Diphtheria, Pertussis, Tetanus Vaccination: Yes Hx Pneumococcal Vaccination: 03/11/16 Review of Systems - Review of Systems -: Yes ROS unobtainable due to patient's medical condition Physical Exam - Vital signs Vitals: Pulse Ox 98 03/15/17 23:31 Interpretation: Tachycardic Notes: PHYSICAL EXAMINATION: GENERAL: Intubated, unresponsive HEAD: Atraumatic, normocephalic. EYES: Pupils equal round and reactive to light, sclera anicteric, conjunctiva are normal. ENT: nares patent, oropharynx clear without exudates. Moderately dry mucous membranes. NECK: supple without lymphadenopathy LUNGS: Scattered rales in all lung severino. Diminished air movement throughout. HEART: Regular tachycardia without murmurs ABDOMEN: Soft, No masses appreciated. EXTREMITIES: no pitting or edema. No cyanosis. NEUROLOGICAL: GCS is 3T. Patient is intubated and sedated. PSYCH: Patient is intubated and sedated SKIN: Warm, Dry, normal turgor, no rashes or lesions noted. Course - Re-evaluation Re-evalutation: 03/15/17 23:54 Patient presents intubated after being found in respiratory distress at home initial saturations apparently 10-20 on room air. Patient then had a respiratory arrest and a possible PEA arrest although no compressions were administered. Patient was intubated in the field and ventilated with ease. At time of arrival patient is mildly tachycardic but other vitals are within normal limits. A bedside echocardiogram shows global hypokinesis and left ventricular hypertrophy. No evidence of pericardial effusion or cardiac tamponade. Pulmonary ultrasound does show B-lines throughout. Patient does not have any additional evidence on clinical exam of overt volume overload without any pitting edema in the bilateral lower extremities. A stat portable chest x-ray does show bilateral pulmonary edema and cardiomegaly. Of note, patient was seen in the emergency department on 03/13 for somnolence. Review of those laboratories at that time does show an abnormally low bicarbonate 18. Will proceed with labs, sedation using propofol and fentanyl, 40 mg of IV furosemide, and close monitoring. Patient's blood pressure is not elevated enough to warrant nitroglycerin infusion. 03/16/17 00:40 Patient's blood pressure has softened on propofol infusion dipped as low as 60. Propofol infusion was held and PEEP was weaned back to 8 from 10. Her blood pressure is appropriately responding to this measure. Will continue to monitor closely and continue to reassess the patient frequently. Chest x-ray does show the ET tube is high and will be advanced 3 cm. 03/16/17 01:13 Pressure is much improved after weaning off propofol now just 5 mcg/min. Current systolic blood pressure is 126. She remains a GCS of 3T. Troponin is elevated at 0.56 and proBNP is elevated at 2600. She does also show some liver congestion with moderately elevated LFTs. Lovenox 65 mg will be administered given her NSTEMI. I have contacted [facility] for transfer. 03/16/17 01:36 Patient sedation has been increased she was given 50 mcg of fentanyl and her propofol infusion was increased to 20 mcg/min. Patient did move all four extremities spontaneously and did open her eyes and make eye contact. 03/16/17 01:50 I have discussed this case with the mortgage loan specialist at [facility] who has accepted the patient for transfer. 03/16/17 03:40 Patient continues to be very sensitive to propofol titration so I have converted to intermittent boluses of fentanyl 50 mcg as needed for sedation. Repeat venous blood gas shows significant improvement of her acidosis and normalization of her PCO2. Continuing to await transfer. 03/16/17 04:00 Transport for transfer has arrived. Patient is appropriate for transport at this time. - Vital Signs Vital signs: Temp Pulse Resp BP Pulse Ox 98.0 F 14 127/106 H 97 03/16/17 03:00 03/16/17 03:00 03/16/17 02:56 03/16/17 03:00 - Laboratory Result Diagrams: 03/15/17 23:47 03/15/17 23:47 Laboratory results interpreted by me: 03/15/17 03/15/17 03/15/17 23:47 23:47 23:47 MCH 26.8 L RDW 15.2 H VBG pH 7.12 L* VBG pCO2 73.7 H* Sodium Glucose AST ALT Alkaline Phosphatase NT-Pro-B Natriuret Pep 2960 H Urine Protein Urine Blood Ur Leukocyte Esterase 03/15/17 03/16/17 03/16/17 23:47 02:35 02:35 MCH RDW VBG pH 7.25 L VBG pCO2 Sodium 136.1 L Glucose 218 H AST 168 H ALT 112 H Alkaline Phosphatase 170 H NT-Pro-B Natriuret Pep Urine Protein 100 H Urine Blood SMALL H Ur Leukocyte Esterase MODERATE H - Diagnostic Test Radiology reviewed: Image reviewed, Reports reviewed Radiology results interpreted by me: 03/15/17 23:56 Chest x-ray: Bilateral pulmonary edema, cardiomegaly - EKG Interpretation by Me Additional EKG results interpreted by me: 03/15/17 23:57 Sinus tachycardia. Rate 109. Intermittent PVCs. No ST elevations or depressions. T-wave inversions in the lateral leads in V4 through 6. T-wave inversions in inferior leads and II, III, aVF. QTC is 469. Critical Care Note - Critical Care Note Total time excluding time spent on procedures (mins): 45 Comments: Critical care time spent obtaining history from patient or surrogate, discussions with consultants, development of treatment plan with patient or surrogate, evaluation of patient's response to treatment, examination of patient , ordering and performing treatments and interventions, ordering and review of laboratory studies, re-evaluation of patient's condition, ordering and review of radiographic studies and review of old charts Discharge - Discharge Clinical Impression: NSTEMI (non-ST elevated myocardial infarction) Respiratory failure Qualifiers: Chronicity: acute Respiratory failure complication: hypoxia and hypercapnia Qualified Code(s): J96.01 - Acute respiratory failure with hypoxia Pulmonary edema Qualifiers: Chronicity: acute Qualified Code(s): J81.0 - Acute pulmonary edema Condition: Critical [facility]
[2017-03-16 00:06] LABS: ABSOLUTE EOSINOPHILS # (AUTO) 0.1 10^3/uL (0.0-0.6); ABSOLUTE MONOCYTES (AUTO) 0.3 10^3/uL (0.1-1.4); ABSOLUTE NEUT (AUTO) 2.8 10^3/uL (1.7-8.2); BASOPHILS % (AUTO) 0.6 % (0-2); EOSINOPHILS % (AUTO) 1.9 % (0-6); HEMATOCRIT 36.9 % (36.0-47.0); HGB HCT DIFFERENCE -0.9; LYMPHOCYTES % (AUTO) 39.1 % (13-45); MEAN CORPUSCULAR HEMOGLOBIN 26.8 pg (27.0-33.4); MEAN CORPUSCULAR HGB CONC 32.4 g/dL (32.0-36.0); MEAN CORPUSCULAR VOLUME 83 fl (80-97); MONOCYTES % (AUTO) 4.8 % (3-13); RED BLOOD COUNT 4.46 10^6/uL (3.72-5.28); RED CELL DISTRIBUTION WIDTH 15.2 % (11.5-14.0); SEGMENTED NEUTROPHILS % (AUTO) 53.6 % (42-78); WHITE BLOOD COUNT 5.2 10^3/uL (4.0-10.5)
--- NOTE | 2017-03-16 00:10 | RADIOLOGY REPORT (SQ) ---
EXAM DESCRIPTION: CHEST SINGLE VIEW COMPLETED DATE/TIME: 03/15/2017 11:53 pm REASON FOR STUDY: post intubation, resp failure COMPARISON: 04/02/2015 EXAM PARAMETERS: NUMBER OF VIEWS: One view. TECHNIQUE: Single frontal radiographic view of the chest acquired. RADIATION DOSE: NA LIMITATIONS: None. FINDINGS: LUNGS AND PLEURA: Diffuse hazy airspace opacities bilaterally. No pneumothorax. No signi ficant effusion. MEDIASTINUM AND HILAR STRUCTURES: Stable. HEART AND VASCULAR STRUCTURES: Stable. BONES: No acute findings. HARDWARE: Endotracheal tube tip overlies the mid trachea, 6.4 cm above the level of the alicja. Naso gastric catheters present with tip overlying the body of the stomach. OTHER: No other significant finding. IMPRESSION: Diffuse hazy airspace opacities bilaterally. No pneumothorax. No significant effusion. Endotracheal tube tip overlies the mid trachea, 6.4 cm above the level of the alicja. Nasogastric ca theters present with tip overlying the body of the stomach. TECHNICAL DOCUMENTATION: JOB ID: [id number]
[2017-03-16 00:16] LABS: VENOUS BLOOD BASE EXCESS -7.3 mmol/L; VENOUS BLOOD HCO3 23.4 mmol/L (20-32)
[2017-03-16 00:20] LABS: VENOUS BLOOD PH 7.12 (7.30-7.42)
[2017-03-16 00:21] LABS: VENOUS BLOOD PCO2 73.7 mmHg (35-63)
[2017-03-16 00:36] LABS: ADD ON TESTING BLD IN LAB ACKNOWLEDGE
[2017-03-16 00:39] LABS: CREATINE KINASE MB 1.01 ng/mL (<4.55)
[2017-03-16 00:48] LABS: TROPONIN I 0.572 ng/mL
[2017-03-16 00:55] LABS: ALANINE AMINOTRANSFERASE 112 U/L (9-52); ALBUMIN 3.5 g/dL (3.5-5.0); ALKALINE PHOSPHATASE 170 U/L (38-126); ANION GAP 10 (5-19); ASPARTATE AMINO TRANSFERASE 168 U/L (14-36); BILIRUBIN,DIRECT 0.4 mg/dL (0.0-0.4); BILIRUBIN,TOTAL 0.5 mg/dL (0.2-1.3); BLOOD UREA NITROGEN 19 mg/dL (7-20); CARBON DIOXIDE 23 mmol/L (22-30); CHLORIDE 103 mmol/L (98-107); CREATININE RESULT 0.94 mg/dL (0.52-1.25); GLUCOSE 218 mg/dL (75-110); POTASSIUM 4.6 mmol/L (3.6-5.0); SODIUM 136.1 mmol/L (137-145); TOTAL PROTEIN 6.8 g/dL (6.3-8.2)
[2017-03-16] MEDS ORDERED: ENOXAPARIN SODIUM INJ 80 MG/0.8 ML DISP.SYRIN SUBCUT SCH ×2 (01:15→10:00)
[2017-03-16] MEDS ORDERED: FENTANYL CITRATE INJ/PF 100 MCG/2 ML AMPUL ONE ×2 (01:19→02:52)
[2017-03-16] MEDS ORDERED: ENOXAPARIN SODIUM INJ 80 MG/0.8 ML DISP.SYRIN SUBCUT ONE (01:30)
[2017-03-16] MEDS ORDERED: FENTANYL CITRATE INJ/PF 250 MCG/5 ML AMPULE IV PRN (02:53)
[2017-03-16 03:03] LABS: VENOUS BLOOD HCO3 25.4 mmol/L (20-32); VENOUS BLOOD PCO2 58.6 mmHg (35-63); VENOUS BLOOD PH 7.25 (7.30-7.42)
[2017-03-16 03:34] LABS: AMORPHOUS SEDIMENT,URINE TRACE /HPF; APPEARANCE,URINE SLIGHTLY-CLOUDY; BILIRUBIN,URINE NEGATIVE (NEGATIVE); GLUCOSE, URINE NEGATIVE (NEGATIVE); KETONES,URINE NEGATIVE (NEGATIVE); LEUKOCYTE ESTERASE,URINE MODERATE (NEGATIVE); NITRITE,URINE NEGATIVE (NEGATIVE); PROTEIN,URINE 100 mg/dL (NEGATIVE); URINE SPECIFIC GRAVITY 1.008; UROBILINOGEN,URINE NEGATIVE mg/dL (<2.0)
[2017-03-16 04:30] VITALS: BP 133/89
--- NOTE | 2017-03-16 11:10 | EKG REPORT ---
SEVERITY:- ABNORMAL ECG - SINUS TACHYCARDIA PROBABLE LEFT ATRIAL ABNORMALITY ABNORMAL T, CONSIDER ISCHEMIA, DIFFUSE LEADS : Confirmed by: Caity Rosales MD 16-Mar-2017 11:09:41
== END 2017-03-16 04:34 | disposition short-term general hospital (02) ==
LOC: ER 23:35
DX: I21.4 Non-ST elevation (NSTEMI) myocardial infarction (principal); J96.01 Acute respiratory failure with hypoxia; J81.0 Acute pulmonary edema; F17.200 Nicotine dependence, unspecified, uncomplicated; E78.00 Pure hypercholesterolemia, unspecified; I10 Essential (primary) hypertension; E11.9 Type 2 diabetes mellitus without complications; Z86.73 Personal history of transient ischemic attack (TIA), and cerebral infarction without residual deficits
CPT/HCPCS: 93005; 99291; 96372; 51702; 96374; 36415; 82553; 82962; 82550; 85025; 80053; 81001; 84484; 82803; 83880; 71010; 93010; J3010; J2704; J1650

== ENCOUNTER 2017-04-30 18:04 | Emergency (ER) | payer MEDICAID ==
[~2017-04-30 18:04] MED LIST: ATROPINE SULFATE INJ 1 MG/10 ML DISP.SYRIN IV ONE; DOPAMINE HCL/D5W 800 MG/250 ML RTU BAG IV ONE; EPINEPHRINE INJ 1 MG/10 ML DISP.SYRIN ONE
--- NOTE | 2017-04-30 20:16 | ER Document Report ---
ED Medical Screen (RME) - General Chief Complaint: Chest Pain Stated Complaint: HEADACHE Time Seen by Provider: 04/30/17 20:14 Notes: Patient states that she had the sudden onset of headache about 2 hours ago. Has been constant and bilateral in her temples and throbbing. She states that she usually needs morphine to stop her headaches. She also states she has had some intermittent chest pain on and off for 4 months. She states she is currently having it since the headache started. She denies any vomiting but has been nauseous. TRAVEL OUTSIDE OF THE [place] IN LAST 30 DAYS: No - Related Data Allergies/Adverse Reactions: No Known Allergies Allergy (Verified 12/07/16 18:42) Past Medical History - Social History Frequency of alcohol use: None Drug Abuse: None Family history: Reviewed & Not Pertinent - Past Medical History Cardiac Medical History: Reports: Hx Hypercholesterolemia, Hx Hypertension Denies: Hx Heart Attack Pulmonary Medical History: Reports: Hx Tuberculosis Denies: Hx Asthma, Hx Bronchitis, Hx COPD, Hx Pneumonia Neurological Medical History: Reports: Hx Cerebrovascular Accident - 2012- OCCASIONAL EXPRESSIVE APHASIA. Denies: Hx Seizures Endocrine Medical History: Reports: Hx Diabetes Mellitus Type 2 Renal/ Medical History: Denies: Hx Peritoneal Dialysis GI Medical History: Reports: Hx Gastroesophageal Reflux Disease, Hx Pancreatitis Musculoskeltal Medical History: Reports Hx Arthritis, Reports Hx Musculoskeletal Trauma Skin Medical History: Reports Hx Cellulitis Psychiatric Medical History: Reports: Hx Bipolar Disorder, Hx Depression Past Surgical History: Reports: Hx Section - X3. Denies: Hx Pacemaker - Immunizations Immunizations up to date: Yes Hx Diphtheria, Pertussis, Tetanus Vaccination: Yes Physical Exam - Vital signs Vitals: Temp Pulse Resp BP Pulse Ox 98.9 F 99 20 149/116 H 99 04/30/17 18:07 04/30/17 18:07 04/30/17 18:07 04/30/17 18:07 04/30/17 18:07 Course - Vital Signs Vital signs: Temp Pulse Resp BP Pulse Ox 98.9 F 99 20 149/116 H 99 04/30/17 18:07 04/30/17 18:07 04/30/17 18:07 04/30/17 18:07 04/30/17 18:07
[2017-04-30 21:21] LABS: APPEARANCE,URINE CLOUDY; BILIRUBIN,URINE NEGATIVE (NEGATIVE); GLUCOSE, URINE >=500 mg/dL (NEGATIVE); KETONES,URINE NEGATIVE (NEGATIVE); LEUKOCYTE ESTERASE,URINE LARGE (NEGATIVE); NITRITE,URINE NEGATIVE (NEGATIVE); PROTEIN,URINE 30 mg/dL (NEGATIVE); UROBILINOGEN,URINE NEGATIVE mg/dL (<2.0)
[2017-04-30 21:28] LABS: ABSOLUTE EOSINOPHILS # (AUTO) 0.1 10^3/uL (0.0-0.6); ABSOLUTE LYMPHOCYTES (AUTO) 1.2 10^3/uL (0.5-4.7); ABSOLUTE MONOCYTES (AUTO) 0.6 10^3/uL (0.1-1.4); ABSOLUTE NEUT (AUTO) 5.5 10^3/uL (1.7-8.2); BASOPHILS % (AUTO) 0.6 % (0-2); EOSINOPHILS % (AUTO) 1.8 % (0-6); HEMATOCRIT 27.5 % (36.0-47.0); HEMOGLOBIN 9.1 g/dL (12.0-15.5); HGB HCT DIFFERENCE -0.2; LYMPHOCYTES % (AUTO) 15.9 % (13-45); MEAN CORPUSCULAR HEMOGLOBIN 26.4 pg (27.0-33.4); MEAN CORPUSCULAR HGB CONC 33.1 g/dL (32.0-36.0); MEAN CORPUSCULAR VOLUME 80 fl (80-97); MONOCYTES % (AUTO) 8.6 % (3-13); RED BLOOD COUNT 3.45 10^6/uL (3.72-5.28); RED CELL DISTRIBUTION WIDTH 15.3 % (11.5-14.0); SEGMENTED NEUTROPHILS % (AUTO) 73.1 % (42-78); WHITE BLOOD COUNT 7.5 10^3/uL (4.0-10.5)
[2017-04-30 21:29] LABS: URINE BARBITURATES SCREEN NEGATIVE; URINE METHADONE SCREEN NEGATIVE; URINE OPIATES LOW NEGATIVE; URINE PHENCYCLIDINE SCREEN NEGATIVE
[2017-04-30 21:50] LABS: ALANINE AMINOTRANSFERASE 19 U/L (9-52); ALBUMIN 3.5 g/dL (3.5-5.0); ALKALINE PHOSPHATASE 109 U/L (38-126); ANION GAP 11 (5-19); ASPARTATE AMINO TRANSFERASE 22 U/L (14-36); BILIRUBIN,DIRECT 0.3 mg/dL (0.0-0.4); BILIRUBIN,TOTAL 0.3 mg/dL (0.2-1.3); BLOOD UREA NITROGEN 29 mg/dL (7-20); CALCIUM 9.4 mg/dL (8.4-10.2); CARBON DIOXIDE 32 mmol/L (22-30); CHLORIDE 94 mmol/L (98-107); CREATININE RESULT 0.94 mg/dL (0.52-1.25); GLUCOSE 353 mg/dL (75-110); POTASSIUM 5.3 mmol/L (3.6-5.0); SODIUM 136.9 mmol/L (137-145); TOTAL PROTEIN 7.7 g/dL (6.3-8.2)
--- NOTE | 2017-04-30 21:52 | RADIOLOGY REPORT (SQ) ---
EXAM DESCRIPTION: CT HEAD WITHOUT COMPLETED DATE/TIME: 04/30/2017 9:25 pm REASON FOR STUDY: mayes COMPARISON: 02/05/2017 TECHNIQUE: Axial images acquired through the brain without intravenous contrast. Images reviewed wi th bone, brain and subdural windows. Images stored on PACS. All CT scanners at this facility use dose modulation, iterative reconstruction, and/or weight based d osing when appropriate to reduce radiation dose to as low as reasonably achievable (ALARA). [facility]: Dose Right [facility]: CareDose [facility]: Dose Right [facility]: Teradose 4D [facility]: [employer] RADIATION DOSE: Up-to-date CT equipment and radiation dose reduction techniques were employed. CTDIv ol: 49.0 mGy. DLP: 783 mGy-cm.mGy. LIMITATIONS: None. FINDINGS: VENTRICLES: Prominent. CEREBRUM: No masses. No hemorrhage. No midline shift. Areas of low density in the white matter mos t likely due to chronic micro-vascular ischemic change. Old right parietal MCA infarct appears stabl e. No evidence for acute infarction. CEREBELLUM: No masses. No hemorrhage. No alteration of density. No evidence for acute infarction. EXTRAAXIAL SPACES: Age-related involutional change. No fluid collections. No masses. ORBITS AND GLOBE: No intra- or extraconal masses. Normal contour of globe without masses. CALVARIUM: No fracture. PARANASAL SINUSES: No fluid or mucosal thickening. SOFT TISSUES: No mass or hematoma. OTHER: No other significant finding. IMPRESSION: CHRONIC CHANGES OF ATROPHY AND MICROVASCULAR ISCHEMIA. Old right parietal MCA infarct a ppears stable. NO ACUTE PROCESS. EVIDENCE OF ACUTE STROKE: NO. TECHNICAL DOCUMENTATION: JOB ID: [id number] Quality ID # [id number]: Final reports with documentation of one or more dose reduction techniques (e.g., Au tomated exposure control, adjustment of the mA and/or kV according to patient size, use of iterative reconstruction technique) 2010 [employer]- All Rights Reserved
[2017-04-30] MEDS ORDERED: CEPHALEXIN 500 MG CAPSULE PO ONE (22:01)
--- NOTE | 2017-04-30 22:35 | ER Document Report ---
ED General - General Chief Complaint: Chest Pain Stated Complaint: HEADACHE Time Seen by Provider: 04/30/17 20:14 Notes: Patient is a 51-year-old female with a past medical history of diabetes, bipolar disorder, hypertension, chronic alcohol abuse who presents with 4 weeks of intermittent chest pain as well as a headache. She describes the pain in her chest is an intermittent, stabbing, pressure-like sensation over the left side of her chest. It does not radiate anywhere. She denies any associated vomiting but states she does become nauseated when the pain is present. No diaphoresis. Patient does not have a cardiac catheterization during her hospitalization in [place]. She denies any history of DVT or pulmonary embolus. She denies any pleuritic pain. No syncope. Nothing improves or worsens the pain. She has not yet followed up with her primary doctor or race car mechanic regarding today's concerns. She also notes that she has had a mild , gradual onset headache with associated dizziness that started approximately 1 day prior to arrival. She states the main reason s coming to the emergency department today as for the chest pain. TRAVEL OUTSIDE OF THE [place] IN LAST 30 DAYS: No - Related Data Allergies/Adverse Reactions: No Known Allergies Allergy (Verified 12/07/16 18:42) Past Medical History - General Information source: Patient - Social History Smoking Status: Former Smoker Frequency of alcohol use: None Drug Abuse: None Lives with: Family Family History: DM - Mother, Hypertension - Mother, Other - Pancreatitismother Patient has suicidal ideation: No Patient has homicidal ideation: No - Past Medical History Cardiac Medical History: Reports: Hx Hypercholesterolemia, Hx Hypertension Denies: Hx Heart Attack Pulmonary Medical History: Reports: Hx Tuberculosis Denies: Hx Asthma, Hx Bronchitis, Hx COPD, Hx Pneumonia Neurological Medical History: Reports: Hx Cerebrovascular Accident - 2012- OCCASIONAL EXPRESSIVE APHASIA. Denies: Hx Seizures Endocrine Medical History: Reports: Hx Diabetes Mellitus Type 2 Renal/ Medical History: Denies: Hx Peritoneal Dialysis GI Medical History: Reports: Hx Gastroesophageal Reflux Disease, Hx Pancreatitis Musculoskeltal Medical History: Reports Hx Arthritis, Reports Hx Musculoskeletal Trauma Skin Medical History: Reports Hx Cellulitis Psychiatric Medical History: Reports: Hx Bipolar Disorder, Hx Depression Past Surgical History: Reports: Hx Section - X3. Denies: Hx Pacemaker - Immunizations Immunizations up to date: Yes Hx Diphtheria, Pertussis, Tetanus Vaccination: Yes Hx Pneumococcal Vaccination: 03/11/16 Review of Systems - Review of Systems Notes: Constitutional: Negative for fever. HENT: Negative for sore throat. Eyes: Negative for visual changes. Cardiovascular: Positive for chest pain. Respiratory: Negative for shortness of breath. Gastrointestinal: Negative for abdominal pain, vomiting or diarrhea. Genitourinary: Negative for dysuria. Musculoskeletal: Negative for back pain. Skin: Negative for rash. Neurological: Positive for headaches, negative for weakness or numbness. 10 point ROS negative except as marked above and in HPI. Physical Exam - Vital signs Vitals: Temp Pulse Resp BP Pulse Ox 98.9 F 99 20 149/116 H 99 04/30/17 18:07 04/30/17 18:07 04/30/17 18:07 04/30/17 18:07 04/30/17 18:07 Notes: PHYSICAL EXAMINATION: GENERAL: Well-appearing, well-nourished and in no acute distress. HEAD: Atraumatic, normocephalic. EYES: Pupils equal round and reactive to light, extraocular movements intact, sclera anicteric, conjunctiva are normal. ENT: nares patent, oropharynx clear without exudates. Moist mucous membranes. NECK: Normal range of motion, supple without lymphadenopathy LUNGS: Breath sounds clear to auscultation bilaterally and equal. No wheezes rales or rhonchi. HEART: Regular rate and rhythm without murmurs ABDOMEN: Soft, nontender, normoactive bowel sounds. No guarding, no rebound. No masses appreciated. EXTREMITIES: Normal range of motion, no pitting or edema. No cyanosis. NEUROLOGICAL: Face symmetric. Tongue protrudes midline. Extraocular motions intact. Pupils are 2 mm and equally reactive. Normal speech, normal gait. 5 out of 5 strength in both the distal and proximal upper and lower extremities bilaterally. Sensation is grossly intact throughout. Finger to nose testing normal. Pronator drift normal. PSYCH: Normal mood, normal affect. SKIN: Warm, Dry, normal turgor, no rashes or lesions noted. Course - Re-evaluation Re-evalutation: 04/30/17 22:32 Patient presents with 2 distinct complaints 1. Chest pain: Patient presents with intermittent chest burning for the past 4 months not new or different today. She apparently initially denied chest pain as the reason for EMS being contacted and states that she was actually calling because she was dizzy. EKG shows T-wave inversions in lateral leads unchanged from prior but otherwise no notable findings. She denies any active my assessment. Low clinical suspicion for ACS given clinical history, exam, EKG without ST elevations or depressions, and initial troponin is lower than her previous troponin tests..PE also seems unlikely given clinical history, absence of tachycardia or dyspnea. Wells score is 0 CXR without evidence of pneumothorax or pneumonia. No widened mediastinum. Aortic dissection also seems unlikely given history, symmetric pulses, CXR, and vitals. Will repeat initial troponin to view a trend. 2.) Headache: Presentation of a headache that appears to be most consistent with tension versus migrainous type headache. Patient states that this headache started approximately 1 day ago. She apparently told EMS originally 1 hour ago. Headache was not maximal in onset, patient has no focal neurologic deficits, no nuchal rigidity, vital signs within normal limits, no papilledema, and patient is overall well in appearance. Based on clinical history and examination I do not suspect an acute subarachnoid hemorrhage, dural venous sinus thrombosis, acute meningitis, or intercranial mass. Given my low clinical suspicion for any acute life-threatening etiology, I do not feel advanced neuro imaging or laboratory testing is indicated at this time. Will proceed with headache cocktail and reassess. 05/01/17 00:27 Troponin continues to elevate although mildly to 0.120. Patient has had minimal response to nitroglycerin so will administer morphine. Patient already received aspirin prior to arrival. Will provide Lovenox. Patient's urinalysis also demonstrates findings of an acute urinary tract infection although she has no flank tenderness to suggest an acute pyelonephritis. A dose of cephalexin has been administered. Given her uptrending troponin will contact [facility] for transfer 05/01/17 00:59 I have spoken with the hospitalist at [facility] Dr. Soriano who is requested I speak with cardiology given her up trending troponins and the fact that she did not have a catheterization during her prior hospitalization 05/01/17 02:40 Patient has been accepted by after I spoke with the PA for the cardiology service. - Vital Signs Vital signs: Temp Pulse Resp BP Pulse Ox 99 F 98 17 146/89 H 99 04/30/17 21:53 04/30/17 21:53 05/01/17 01:31 05/01/17 01:31 04/30/17 23:34 - Laboratory Result Diagrams: 04/30/17 21:12 04/30/17 21:12 Laboratory results interpreted by me: 04/30/17 04/30/17 04/30/17 20:30 21:12 21:12 RBC 3.45 L Hgb 9.1 L Hct 27.5 L MCH 26.4 L RDW 15.3 H Sodium 136.9 L Potassium 5.3 H Chloride 94 L Carbon Dioxide 32 H BUN 29 H Glucose 353 H NT-Pro-B Natriuret Pep Urine Protein 30 H Urine Glucose (UA) >=500 H Ur Leukocyte Esterase LARGE H Urine Ascorbic Acid 40 H 04/30/17 21:12 RBC Hgb Hct MCH RDW Sodium Potassium Chloride Carbon Dioxide BUN Glucose NT-Pro-B Natriuret Pep 5360 H Urine Protein Urine Glucose (UA) Ur Leukocyte Esterase Urine Ascorbic Acid - Diagnostic Test Radiology reviewed: Image reviewed, Reports reviewed Radiology results interpreted by me: 05/01/17 00:28 Chest x-ray: No acute infiltrate or pneumothorax - EKG Interpretation by Me Additional EKG results interpreted by me: 04/30/17 22:35 Sinus rhythm. Rate 98. No ST elevations or depressions. QTC is 460. Discharge - Discharge Clinical Impression: NSTEMI (non-ST elevated myocardial infarction) Condition: Fair Disposition: [facility] Referrals: ANNALISA SOARES PA-C [Primary Care Provider] - Follow up as needed
[2017-04-30 22:36] LABS: ADD ON TESTING BLD IN LAB ACKNOWLEDGE
[2017-04-30] MEDS: NITROGLYCERIN 0.4 MG/TAB 25 TAB/BOTTLE SL PRN ×2 (22:37→22:42)
[2017-04-30 22:52] LABS: ALCOHOL < 10 mg/dL (NONE DETECTED)
--- NOTE | 2017-04-30 23:20 | EKG REPORT ---
SEVERITY:- ABNORMAL ECG - SINUS RHYTHM PROBABLE LEFT ATRIAL ABNORMALITY LVH WITH SECONDARY REPOLARIZATION ABNORMALITY VS ISCHEMIA : Confirmed by: Yevgeniy Jose 30-Apr-2017 23:20:03
--- NOTE | 2017-04-30 23:51 | RADIOLOGY REPORT (SQ) ---
EXAM DESCRIPTION: CHEST PA/LAT COMPLETED DATE/TIME: 04/30/2017 10:50 pm REASON FOR STUDY: chest pain COMPARISON: 04/02/2015. EXAM PARAMETERS: NUMBER OF VIEWS: two views TECHNIQUE: Digital Frontal and Lateral radiographic views of the chest acquired. RADIATION DOSE: NA LIMITATIONS: none FINDINGS: LUNGS AND PLEURA: Prominent interstitium. Mild hyperinflation. MEDIASTINUM AND HILAR STRUCTURES: No masses or contour abnormalities. HEART AND VASCULAR STRUCTURES: Heart normal size. No evidence for failure. BONES: No acute findings. HARDWARE: None in the chest. OTHER: No other significant finding. IMPRESSION: No acute cardiopulmonary findings. TECHNICAL DOCUMENTATION: JOB ID: [id number] [employer]- All Rights Reserved
[2017-05-01] MEDS: MORPHINE SULFATE 10 MG/ML INJ IV PRN ×2 (01:45→07:40)
[2017-05-01] MEDS ORDERED: ENOXAPARIN SODIUM INJ 80 MG/0.8 ML DISP.SYRIN SUBCUT SCH ×2 (02:45→22:00)
[2017-05-01] MEDS ORDERED: ENOXAPARIN SODIUM INJ 80 MG/0.8 ML DISP.SYRIN SUBCUT ONE (03:45)
[2017-05-01] MEDS ORDERED: ALBUTEROL SULFATE 0.083% NEB 2.5 MG/3 ML AMPUL NEB ONE ×2 (08:19→08:33)
[2017-05-01] MEDS ORDERED: NITROGLYCERIN/D5W 50 MG/250 ML RTUINJ IV ONE (08:20)
[2017-05-01] MEDS ORDERED: NITROGLYCERIN 0.4 MG/TAB 25 TAB/BOTTLE SL PRN (08:33)
[2017-05-01] MEDS ORDERED: FUROSEMIDE INJ/PF 40 MG/4 ML SDV IV ONE (08:33)
[2017-05-01] MEDS ORDERED: NITROGLYCERIN/D5W 50 MG/250 ML RTUINJ IV PRN (08:34)
--- NOTE | 2017-05-01 08:36 | ER Document Report ---
Doctor's Note Notes: GENERAL: Appears in distress. HEAD: Normocephalic, atraumatic. EYES: Pupils equal, round, and reactive to light. Extraocular movements intact. ENT: Oral mucosa moist, tongue midline. NECK: Full range of motion. Supple. Trachea midline. LUNGS: In respiratory distress. Rales and wheezing. Hypoxic. HEART: Tachycardic. No murmurs, gallops, or rubs. EXTREMITIES: Moves all 4 extremities spontaneously. NEUROLOGICAL: Alert and oriented x3. PSYCH: Normal affect, normal mood. SKIN: Warm, dry, normal turgor. No rashes or lesions noted. 05/01/17 08:33
[2017-05-01] MEDS ORDERED: ETOMIDATE INJ/PF 20 MG/10 ML SDV IV ONE (08:41)
--- NOTE | 2017-05-01 08:43 | RADIOLOGY REPORT (SQ) ---
EXAM DESCRIPTION: CHEST SINGLE VIEW COMPLETED DATE/TIME: 05/01/2017 8:25 am REASON FOR STUDY: er 5 COMPARISON: 04/30/2017 EXAM PARAMETERS: NUMBER OF VIEWS: One view. TECHNIQUE: Single frontal radiographic view of the chest acquired. RADIATION DOSE: NA LIMITATIONS: None. FINDINGS: LUNGS AND PLEURA: Minimal bibasilar opacities. No pneumothorax. MEDIASTINUM AND HILAR STRUCTURES: No masses. Contour normal. HEART AND VASCULAR STRUCTURES: Heart normal in size. Normal vasculature. BONES: No acute findings. HARDWARE: None in the chest. OTHER: No other significant finding. IMPRESSION: Interval development of minimal bibasilar opacities. Most consistent with pneumonia. TECHNICAL DOCUMENTATION: JOB ID: [id number] [employer]- All Rights Reserved
[2017-05-01] MEDS ORDERED: KETAMINE HCL INJ 500 MG/10 ML VIAL ONE (08:48)
[2017-05-01] MEDS ORDERED: VECURONIUM BROMIDE INJ 10 MG VIAL IV ONE ×2 (08:50→08:51)
[2017-05-01] MEDS ORDERED: MIDAZOLAM 2 MG/2 ML INJ ONE (09:09)
[2017-05-01] MEDS ORDERED: MIDAZOLAM HCL 0 ML IV ONE (09:10)
[2017-05-01] MEDS ORDERED: ATROPINE SULFATE INJ 1 MG/1 ML VIAL ONE (09:13)
[2017-05-01] MEDS ORDERED: PHENYLEPHRINE HCL INJ/PF 10 MG/1 ML SDV ONE (09:24)
[2017-05-01] MEDS ORDERED: DOPAMINE HCL/DEXTROSE 5%-WATER 0 MG/0 ML RTUINJ IV ONE (09:26)
--- NOTE | 2017-05-01 09:37 | ER Document Report ---
ED General - General Mode of Arrival: Stretcher Information source: Patient TRAVEL OUTSIDE OF THE [place] IN LAST 30 DAYS: No <GUERA SENA - Last Filed: 05/01/17 11:38> <JOHNY WOLF - Last Filed: 05/01/17 12:06> - General Chief Complaint: Breathing Difficulty Stated Complaint: HEADACHE Time Seen by Provider: 04/30/17 20:14 Notes: This is a continuation of the initial visit of Dr. Collins and Dr. Fox on . Patient is a 51 year old female who was waiting to be transferred to [facility] when she became hypoxic, tachycardic, tachypneic. Patient states that she could not breath. Patient currently denies any chest pain although this was one of her initial complaints. Patient has a life vest but does not know why. Patient had to be intubated due to altered mental status for concern of her airway. After intubation patient became bradycardic and went into asystole. (GUERA SENA) - Related Data Allergies/Adverse Reactions: No Known Allergies Allergy (Verified 12/07/16 18:42) Past Medical History - General Information source: Patient - Social History Smoking Status: Former Smoker Frequency of alcohol use: None Drug Abuse: None Lives with: Family Family History: DM - Mother, Hypertension - Mother, Other - Pancreatitismother Patient has suicidal ideation: No Patient has homicidal ideation: No - Past Medical History Cardiac Medical History: Reports: Hx Hypercholesterolemia, Hx Hypertension Pulmonary Medical History: Reports: Hx Tuberculosis Neurological Medical History: Reports: Hx Cerebrovascular Accident - 2011- OCCASIONAL EXPRESSIVE APHASIA Endocrine Medical History: Reports: Hx Diabetes Mellitus Type 2 GI Medical History: Reports: Hx Gastroesophageal Reflux Disease, Hx Pancreatitis Musculoskeltal Medical History: Reports Hx Arthritis, Reports Hx Musculoskeletal Trauma Skin Medical History: Reports Hx Cellulitis Psychiatric Medical History: Reports: Hx Bipolar Disorder, Hx Depression Past Surgical History: Reports: Hx Section - X3 - Immunizations Immunizations up to date: Yes Hx Diphtheria, Pertussis, Tetanus Vaccination: Yes Hx Pneumococcal Vaccination: 03/11/16 <GUERA SENA - Last Filed: 05/01/17 11:38> Review of Systems - Review of Systems Constitutional: No symptoms reported EENT: No symptoms reported Cardiovascular: See HPI, Dyspnea. denies: Chest pain Respiratory: See HPI Gastrointestinal: No symptoms reported Genitourinary: No symptoms reported Female Genitourinary: No symptoms reported Musculoskeletal: No symptoms reported Skin: No symptoms reported Hematologic/Lymphatic: No symptoms reported Neurological/Psychological: No symptoms reported -: Yes All other systems reviewed and negative <JAIDAGUERA - Last Filed: 05/01/17 11:38> Physical Exam <JAIDAGUERA - Last Filed: 05/01/17 11:38> <JOHNY WOLF - Last Filed: 05/01/17 12:06> - Vital signs Vitals: Temp Pulse Resp BP Pulse Ox 98.9 F 99 20 149/116 H 99 04/30/17 18:07 04/30/17 18:07 04/30/17 18:07 04/30/17 18:07 04/30/17 18:07 - Notes Notes: GENERAL: Appears in distress. HEAD: Normocephalic, atraumatic. EYES: Pupils equal, round, and reactive to light. Extraocular movements intact. ENT: Oral mucosa moist, tongue midline. Frothy white sputum. NECK: Full range of motion. Supple. Trachea midline. LUNGS: In respiratory distress. Rales, rhonchi and wheezing. Hypoxic. Tachypneic. Respiratory Rate:47 Pusle ox: 74% on room air. (upon inital exam ) HEART: Tachycardic. No murmurs, gallops, or rubs. Heart Rate:150 (upon inital exam 05/01/2017) EXTREMITIES: Moves all 4 extremities spontaneously. NEUROLOGICAL: Alert and oriented x3. PSYCH: Patient is anxious. SKIN: Warm, dry, normal turgor. No rashes or lesions noted. (GUERA SENA) Course - Laboratory Result Diagrams: 04/30/17 21:12 04/30/17 21:12 - Consults Time consulted: 10:31 - Dr. Wang accepted patient who will be air lifted to [facility]. Dr. Wang requested patient to be taken off of Dopamine and swithced to Levophed. <GUERA SENA - Last Filed: 05/01/17 11:38> - Laboratory Result Diagrams: 04/30/17 21:12 04/30/17 21:12 <JOHNY WOLF - Last Filed: 05/01/17 12:06> - Re-evaluation Re-evalutation: 05/01/17 11:42 Patient had sudden onset of shortness of breath, tachypnea and tachycardia, patient appeared to be in flash pulmonary edema with some frothy white sputum and extreme respiratory distress. Was given nitroglycerin under the tongue, breathing treatments for the wheezing, facemask at 10 L/min oxygen and started on BiPAP, patient initially improved and was started on nitroglycerin drip at 40 mics per minute, patient was then rechecked about 10 minutes later and found to be unresponsive, she was still breathing but would not respond to a sternal rub. Patient was then transferred to [place] [id number] in anticipation of intubation. She remained on BiPAP continued breathing, as we were about to give her ketamine to intubate her patient actually woke up and became responsive again, was able to tell me that yes she would like to be intubated, agreed with the decision to intubate. Patient was then given ketamine to intubate, apneic oxygenation was used via nasal cannula, PA student Lincoln Moreno attempted intubation initially under my direct supervision using a 3-1/2 MAC blade, he was unable to visualize the cords, there were copious secretions, I then immediately took over with a 4 Linder, was able to visualize a very anterior airway, and 8 oh ET tube was passed, taped at 24 cm at the teeth, patient initially responded well however she then became hypoxic, we manually ventilated her with a bag however patient's heart rate went from a rate of approximately 150 and then bradycardia down to 61 at which point she developed a second degree heart block with a 2-1 ratio and after approximately 30 seconds in a second degree heart block had a full asystolic arrest, CPR was started, patient was given atropine half a milligram while she was still bradycardic however then she arrested so she was given the other half a milligram when CPR was started a milligram of epinephrine was given as well, after 2 rounds of CPR we did have ROSC with sinus tachycardia at a rate of 120 and 1+ peripheral pulses. Patient was started on dopamine drip to increase cardiac output and increase the blood pressure without elevating the heart rate the same without epinephrine would have, patient initially good response to dopamine at 4/min this was then increased to 8/min after about 30 minutes. Patient's LifeVest was removed when she started becoming bradycardic and pacer pads were placed however they were never needed. Patient did have a left IJ central line started which was ultrasound-guided. Orogastric tube was placed. Other interventions included a right tibial IO that had to be placed just prior to intubation as we lost the IV in her left upper extremity. Temp Newman was placed as well. EKG was repeated and still did not reveal a STEMI. Chest x- ray confirmed placement of IJ without pneumothorax, ET tube was 7 cm above the alicja and this was advanced by 3 cm by the air crew who is now at bedside. Patient did desaturate after the tube was advanced, repeat chest x-rays being checked at this point. OG tube also had to be advanced. Arterial blood gas after patient had been hyperventilated for at least 30 minutes revealed normal pH elevated O2 and slightly low CO2, patient's ventilatory rate was then decreased. All of this information was communicated to Ervin Fitzpatrick, I then spoke with the solvent station attendant who agreed to accept the patient to his service. Recommended switching from dopamine to Levophed, we did as requested. Of note the patient's urine is now growing out gram-negative rods, patient previously been given a dose of Rocephin, it is not yet time for a second dose of Rocephin. (JOHNY WOLF) - Vital Signs Vital signs: Temp Pulse Resp BP Pulse Ox 99.2 F 98 20 99/64 L 100 05/01/17 11:49 04/30/17 21:53 05/01/17 11:49 05/01/17 11:49 05/01/17 11:49 - Laboratory Laboratory results interpreted by me: 04/30/17 04/30/17 04/30/17 20:30 21:12 21:12 RBC 3.45 L Hgb 9.1 L Hct 27.5 L MCH 26.4 L RDW 15.3 H Carbonic Acid ABG pCO2 ABG pO2 ABG O2 Saturation Sodium 136.9 L Potassium 5.3 H Chloride 94 L Carbon Dioxide 32 H BUN 29 H Glucose 353 H NT-Pro-B Natriuret Pep Urine Protein 30 H Urine Glucose (UA) >=500 H Ur Leukocyte Esterase LARGE H Urine Ascorbic Acid 40 H 04/30/17 05/01/17 21:12 10:41 RBC Hgb Hct MCH RDW Carbonic Acid 0.95 L ABG pCO2 31.7 L ABG pO2 329.0 H ABG O2 Saturation 99.8 H Sodium Potassium Chloride Carbon Dioxide BUN Glucose NT-Pro-B Natriuret Pep 5360 H Urine Protein Urine Glucose (UA) Ur Leukocyte Esterase Urine Ascorbic Acid - EKG Interpretation by Me Additional EKG results interpreted by me: 05/01/17 11:54 Repeat EKG postarrest shows sinus tachycardia at a rate of 103, normal axis, normal intervals, no ST segment elevations or depressions, there are T-wave inversions in leads II, 3, aVF, V3 through V6, the only change from the prior EKG at 718 this morning is new T-wave inversions in V3 otherwise unchanged, no evidence of STEMI per my interpretation. (JOHNY WOLF) Procedures <GUERA SENA - Last Filed: 05/01/17 11:38> - Central Line Left Internal jugular Consent obtained: No - intubated, emergent Central line pre-insertion: Sterile PPE donned, Chloraprep applied, Sterile drapes applied Central line size (Fr.): 20 Central line lumen type: Triple Anesthetic type: Other - IV sedation Ultrasound guided: Yes CM at insertion site: 15 Line secured with sutures: Yes Central line post-insertion: Blood return from lumens, Biopatch applied, Sutured , Sterile dressing applied, Position confirmed w/ CXR Number of attempts: 1 Complications: No - Intubation Orotracheal Airway evaluation: Copious secretions, Large tongue Mallampati Classification: Class 2 Medications: Ketamine, Vecuronium Intubation method: Orotracheal Blade type: Linder Blade size: 4 ETT size: 8.0 ETT secured at: Teeth ETT secured at (cm): 24 Breath Sounds after Intubation: Equal End tidal CO2 confirmed: Yes Ventilator settings: SIMV Tidal volume: 400 FiO2: 100 Respirations: 26 Pressure support: 10 PEEP: 8 Post Intubation Xray: Yes - advanced by 3 cm post CXR Intubation Complications: Oral-unsuccessful attempt - intial attempt by PA student directly supervised by me was unsuccessful. <JOHNY WOLF - Last Filed: 05/01/17 12:06> - Central Line Left Internal jugular Notes: 05/01/17 11:40 Maximum sterile barrier technique was used, ultrasound guidance was used, no complications. (JOHNY WOLF) Critical Care Note <GUERA SENA - Last Filed: 05/01/17 11:38> - Critical Care Note Total time excluding time spent on procedures (mins): 110 <JOHNY WOLF - Last Filed: 05/01/17 12:06> - Critical Care Note Comments: From the time the patient developed respiratory distress at approximately 830 this morning until the time the helicopter crew arrived around 11:30 the patient required constant reassessment, interventions, adjustment of nitroglycerin drips, adjustment of BiPAP, decision to intubate, management of vent setting and then post-arrest care, discussions with family and consultants. This does not include time spent on CPR, intubation itself, central line or any other separately billable procedures. (JOHNY WOLF) Discharge <GUERA SENA - Last Filed: 05/01/17 11:38> <JOHNY WOLF - Last Filed: 05/01/17 12:06> - Discharge Clinical Impression: NSTEMI (non-ST elevated myocardial infarction), Cardiac arrest, Flash pulmonary edema Urinary tract infection Qualifiers: Urinary tract infection type: acute cystitis Hematuria presence: without hematuria Qualified Code(s): N30.00 - Acute cystitis without hematuria Condition: Critical Disposition: [facility] Referrals: ANNALISA SOARES PA-C [Primary Care Provider] - Follow up as needed Scribe Attestation: 05/01/17 12:06 I personally performed the services described in the documentation, reviewed and edited the documentation which was dictated to the scribe in my presence, and it accurately records my words and actions. (JOHNY WOLF) Scribe Documentation - Scribe Written by Frenchibe:: Didi Mckeon, 05/01/2017 11:01 acting as scribe for :: Joana <GUERA SENA - Last Filed: 05/01/17 11:38>
[2017-05-01] MEDS ORDERED: DEXTROSE 5%-WATER 250 ML with NOREPINEPHRINE BITARTRATE 4 MG IV PRN ×2 (10:32)
[2017-05-01] MEDS ORDERED: NOREPINEPHRINE BITARTRATE INJ/PF 4 MG/4 ML SDV IV ONE (10:54)
[2017-05-01 10:56] LABS: ARTERIAL BLOOD BASE EXCESS -1.7 mmol/L; ARTERIAL BLOOD O2 SATURATION 99.8 % (94-98)
--- NOTE | 2017-05-01 11:00 | RADIOLOGY REPORT (SQ) ---
EXAM DESCRIPTION: CHEST SINGLE VIEW COMPLETED DATE/TIME: 05/01/2017 10:47 am REASON FOR STUDY: ET TUBE AND LINE PLACEMENT COMPARISON: Chest films 05/01/2017, 04/30/2017, 03/15/2017 EXAM PARAMETERS: NUMBER OF VIEWS: One view. TECHNIQUE: Single frontal radiographic view of the chest acquired. RADIATION DOSE: NA LIMITATIONS: None. FINDINGS: Endotracheal tube tip 7 cm above the alicja, at about the level of the clavicular heads. Nasogastric tube tip at the GE junction, side port in the mid 3rd of the esophagus. Left jugular central venous catheter tip in the upper superior vena cava Defibrillator pads are seen over the chest. LUNGS AND PLEURA: Mild perihilar pulmonary edema. No gross pleural effusion or pneumothorax. No den se consolidation worrisome for pneumonia MEDIASTINUM AND HILAR STRUCTURES: No masses. Contour normal. HEART AND VASCULAR STRUCTURES: No cardiomegaly BONES: No acute findings. HARDWARE: None in the chest. OTHER: No other significant finding. IMPRESSION: Endotracheal tube tip high 8, 7 cm above the alicja. Nasogastric tube tip high a, the near the GE junction Left jugular triple lumen catheter tip in the upper superior vena cava. No pneumothorax Mild bilateral perihilar pulmonary edema. TECHNICAL DOCUMENTATION: JOB ID: [id number] [employer]- All Rights Reserved
--- NOTE | 2017-05-01 12:11 | RADIOLOGY REPORT (SQ) ---
EXAM DESCRIPTION: CHEST SINGLE VIEW COMPLETED DATE/TIME: 05/01/2017 11:58 am REASON FOR STUDY: advanced ETT to 27cm. reeval placement. COMPARISON: 05/01/2017 EXAM PARAMETERS: NUMBER OF VIEWS: One view. TECHNIQUE: Single frontal radiographic view of the chest acquired. RADIATION DOSE: NA LIMITATIONS: None. FINDINGS: LUNGS AND PLEURA: There is mild perihilar opacification mild opacification right base. MEDIASTINUM AND HILAR STRUCTURES: No masses. Contour normal. HEART AND VASCULAR STRUCTURES: Heart normal in size. Normal vasculature. BONES: No acute findings. HARDWARE: An endotracheal tube is positioned with the tip 1 cm above the alicja. An NG tube extends to the region of the gastroesophageal junction. A left internal jugular catheter has its tip near bartlett perior cava. OTHER: No other significant finding. IMPRESSION: 1. Mild pulmonary edema. 2. Tube placement catheter placement as described. TECHNICAL DOCUMENTATION: JOB ID: [id number] [employer]- All Rights Reserved
[2017-05-01 12:32] VITALS: BP 116/77
--- NOTE | 2017-05-01 21:09 | EKG REPORT ---
SEVERITY:- ABNORMAL ECG - SINUS TACHYCARDIA PROBABLE LEFT ATRIAL ABNORMALITY ABNORMAL T, CONSIDER ISCHEMIA, DIFFUSE LEADS : Confirmed by: Caity Rosales MD 01-May-2017 21:08:34
--- NOTE | 2017-05-01 21:09 | EKG REPORT ---
SEVERITY:- ABNORMAL ECG - SINUS RHYTHM PROBABLE LEFT ATRIAL ABNORMALITY ABNORMAL T, CONSIDER ISCHEMIA, DIFFUSE LEADS : Confirmed by: Caity Rosales MD 01-May-2017 21:08:44
== END 2017-05-01 11:20 | disposition short-term general hospital (02) ==
LOC: ER 18:04
PROC: 05HN33Z Insertion of Infusion Device into Left Internal Jugular Vein, Percutaneous Approach (ICD-10-PCS; principal; 2017-04-30)
PROC: 0BH17EZ Insertion of Endotracheal Airway into Trachea, Via Natural or Artificial Opening (ICD-10-PCS; 2017-05-01)
DX: I21.4 Non-ST elevation (NSTEMI) myocardial infarction (principal); I46.9 Cardiac arrest, cause unspecified; N30.00 Acute cystitis without hematuria; R51 Headache; R06.02 Shortness of breath; J81.1 Chronic pulmonary edema; R09.02 Hypoxemia; R00.0 Tachycardia, unspecified; Z87.891 Personal history of nicotine dependence
CPT/HCPCS: 36561; 31500; 93005 ×2; 94640; 99291; 99292; 96372; 96375; 96365; 96366; 96367; 36415; 87086; 80307 ×2; 82803; 85025; 87088; 80053; 81001; 84484; 87186; 83880; 71020; 71010; 70450; 93010 ×2; C1751; L0172; J0461 ×2; J1265 ×2; J0171; J3490 ×5; J2270; J7060; J1650; C1769